=== PATIENT | female | born 1975 | race Caucasian/White ===

== ENCOUNTER 2019-01-14 12:11 | Emergency (ER) | payer MEDICAID, OTHER ==
[2019-01-14] MEDS ORDERED: methylPREDNISolone ACETATE 80 MG/ML VIAL IM ONE (12:19)
[2019-01-14 12:24] VITALS: BP 168/96
--- NOTE | 2019-01-14 12:27 | ED Physician Documentation ---
Skin Rash - HISTORIAN Historian: patient - HPI Stated Complaint: Rash Chief Complaint: Allergic Reaction Onset: days ago (1) Timing: still present Duration: persistent since Location: trunk, RLE Quality: itchy Identified Cause?: Yes (she started Keflex two days ago ) Where: home Context: Medication Exposure: antibiotic Context: Food Exposure: none Further Comments: yes (she states she started Keflex two days ago and she had a rash starting last night and today. No OTC meds have been used for symptoms) - ROS CONST: none MS/SKIN/LYMPH: rash - PAST HX Past History: none Allergies/Adverse Reactions: Allergies Allergy/AdvReac Type Severity Reaction Status Date / Time No Known Drug Allergies Allergy Unknown Verified 01/14/19 12:24 - SOCIAL HX Smoking History: non-smoker Alcohol Use: none Drug Use: none - FAMILY HX Family History: none - VITAL SIGNS Vital Signs: Vital Signs Temp Pulse Resp BP Pulse Ox 97.7 F 97 H 19 168/96 95 01/14/19 12:20 01/14/19 12:20 01/14/19 12:20 01/14/19 12:20 01/14/19 12:20 - REVIEWED ASSESSMENTS Nursing Assessment Reviewed: Yes Vitals Reviewed: Yes ED Results Lab/Radiology - Orders Orders: ED Orders Category Date Time Status methylPREDNISolone ACETATE [DEPO-Medrol] Med 01/14/19 12:19 Discontinued 80 mg IM NOW ONE Skin Rash Physical Exam - EXAM General Appearance: no acute distress, alert Skin: warm,dry, other (abdomen and right upper leg with several small red raised areas. Also red raised area on left upper leg with two crusted areas (she has a history of MRSA ) Location: other (abdomen and right upper leg ) Symptoms: warmth (on area left upper leg red raised warm approx 6 cm round with three crusting areas middle of red raised area ) Extremities: non-tender EENT: eyes nml inspection, lips nml, pharynx nml Respiratory: no resp distress, chest non-tender, breath sounds normal CVS: reg. rate & rhythm Abdomen: non-tender Neuro/Psych: oriented x3 Discharge Clincal Impression: Allergic reaction caused by a drug Qualifiers: Encounter type: initial encounter Qualified Code(s): T78.40XA - Allergy, unspecified, initial encounter Referrals: Lurdes Lieberman MD [Primary Care Provider] - 2 Days Comments: 1. Medrol dose pack - start and take per directions on 01.15.19 2. Bactrim DS take 1 by mouth twice daily x 10 days 3. Benadryl OTC as directed as needed for symptoms 4. Return to ER for any increasing concerns Condition: Stable Disposition: 01 HOME, SELF-CARE Decision to Admit: NO Date of Decison to Admit: 01/14/19 Decision Time: 12:42
== END 2019-01-14 12:47 | disposition home or self-care (01) ==
LOC: ED 12:11
DX: L27.0 Generalized skin eruption due to drugs and medicaments taken internally (principal); T36.1X5A Adverse effect of cephalosporins and other beta-lactam antibiotics, initial encounter; Y92.009 Unspecified place in unspecified non-institutional (private) residence as the place of occurrence of the external cause
CPT/HCPCS: 96372; 99283; J1040